=== PATIENT | female | born 1935 | race American Indian/Alaskan Native ===

== ENCOUNTER 2018-05-04 10:55 | Outpatient (CLI) | payer MEDICARE ==
--- NOTE | 2018-05-04 13:09 | XRay Report ---
Bilateral knee: History: Knee pain. Findings: Bilateral severe narrowing of medial compartment of knee joint. Sclerotic articular surfaces at the Deflux defect suggestive severe degenerative changes. Moderate degenerative changes are noted at the lateral and the patellofemoral compartment. No soft tissue calcification or joint effusion. 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
== END 2018-05-04 10:56 | disposition home or self-care (01) ==
LOC: SPVIMAG 10:55 → EDSEX 10:55 → SPVIMAG 10:56
PROVIDERS: ATTEND Orthopaedic Surgery Sports Medicine
DX: M17.0 Bilateral primary osteoarthritis of knee (principal)